=== PATIENT | female | born 1940 | race Caucasian/White ===

== ENCOUNTER 2023-06-23 06:21 | Inpatient (IN) | payer MEDICARE ==
[2023-06-23] MEDS ORDERED: KETAMINE 100 MG/ML (5ML VIAL) ONE (06:30)
[2023-06-23] MEDS ORDERED: fentaNYL 50 mcg/mL 1 mL Vial ONE (06:42)
[2023-06-23] MEDS ORDERED: Ondansetron PF 4 MG/2 ML Vial ONE (07:11)
[2023-06-23 07:15] LABS: #Eosinphils 0.1 thou/uL (0.0-0.7); #Monocytes 0.4 thou/uL (0.11-0.59); #Neutrophils 4.8 thou/uL (1.40-6.50); %Basophils 0.3 % (0.0-1.0); %Eosinophils 2.1 % (0.0-10.0); %Lymphocytes 19.5 % (21.0-51.0); %Monocytes 6.2 % (0.0-10.0); %Neutrophils 71.6 % (42.0-75.0); Hematocrit 20.3 % (36.0-47.0); Hemoglobin 6.3 g/dL (12.0-16.0); Mean Corpuscular Hemoglobin 25.9 pg (27.0-31.0); Mean Corpuscular Volume 83.5 fl (78.0-98.0); Mean Platelet Volume 11.1 fL (7.4-10.4); Platelet Count 244 10x3/uL (130-400); Red Blood Cell (RBC) Count 2.43 mill/uL (4.20-5.40); White Blood Cell (WBC) Count 6.7 10x3/uL (4.8-10.8)
[2023-06-23] MEDS ORDERED: Acetaminophen 325 MG TAB PO PRN (07:19)
[2023-06-23] MEDS ORDERED: Glucagon 1 MG/ML KIT IM PRN (07:19)
[2023-06-23] MEDS ORDERED: Dextrose 50% Abboject 50 ML SYRINGE SLOW IVP PRN (07:19)
[2023-06-23] MEDS ORDERED: Ondansetron ODT 4 MG TAB PO PRN (07:19)
[2023-06-23] MEDS ORDERED: Ondansetron PF 4 MG/2 ML Vial IVP PRN (07:19)
[2023-06-23] MEDS ORDERED: Dextrose 5% in Water 1,000 ML IV PRN (07:19)
[2023-06-23 07:32] LABS: PTT 25.2 sec (22.9-36.1); Prothrombin Time 13.8 sec (12.0-14.7)
[2023-06-23 07:37] LABS: ALT (SGPT) 18 U/L (8-55); AST (SGOT) 24 U/L (5-34); Albumin 3.3 g/dL (3.4-4.8); Alkaline Phosphatase 71 U/L (40-110); Anion Gap 16 mmol/L (10-20); BUN (Urea Nitrogen) 27 mg/dL (9.8-20.1); Bilirubin, Total 0.3 mg/dL (0.2-1.2); Calc. Creatinine Clearance 0 mL/min (70-130); Calcium 8.6 mg/dL (7.8-10.44); Carbon Dioxide 26 mmol/L (23-31); Chloride 97 mmol/L (98-107); Estimated GFR 37; Globulin 2.9 g/dL (2.4-3.5); Glucose 251 mg/dL (83-110); Magnesium 1.8 mg/dL (1.6-2.6); Potassium 3.3 mmol/L (3.5-5.1); Protein, Total 6.2 g/dL (5.8-8.1); Sodium 136 mmol/L (136-145)
[2023-06-23 07:40] LABS: Troponin I 0.064 ng/mL (< 0.028)
[2023-06-23] MEDS ORDERED: Morphine 2 MG/ML VIAL ONE ×2 (08:53→10:52)
[2023-06-23 11:11] LABS: Lactic Acid 1.1 mmol/L (0.5-2.2)
[2023-06-23] MEDS: Morphine 2 MG/ML VIAL SLOW IVP PRN ×2 (11:36→15:13)
[2023-06-23] MEDS ORDERED: TETANUS, DIPHTHERIA TOX,ADULT (TDVAX) 0.5 ML VIAL IM ONE (12:00)
[2023-06-23 12:10] VITALS: BMI 25.4
[2023-06-23 16:39] LABS: Hemoglobin A1c 6.2 % (4.0-6.0)
[2023-06-23 16:51] LABS: Iron 60 ug/dL (50-170); Iron Binding Capacity, Total 326 mcg/dL (265-497)
[2023-06-23] MEDS: HYDROcodone/Acetaminophen 5/325 mg Tablet PO PRN (17:44)
[2023-06-23] MEDS: HumaLOG 300 UNITS/3 ML VIAL SC PRN (18:15)
[2023-06-23 19:06] LABS: Hematocrit 23.6 % (36.0-47.0); Hemoglobin 7.6 g/dL (12.0-16.0)
[2023-06-23] MEDS: Acetaminophen/Codeine 30-300mg Tablet PO PRN (19:47)
[2023-06-24] MEDS: Morphine 2 MG/ML VIAL SLOW IVP PRN ×2 (02:18→20:51)
[2023-06-24] MEDS: HYDROcodone/Acetaminophen 5/325 mg Tablet PO PRN (02:55)
[2023-06-24 04:54] LABS: #Eosinphils 0.1 thou/uL (0.0-0.7); #Monocytes 0.6 thou/uL (0.11-0.59); #Neutrophils 6.7 thou/uL (1.40-6.50); %Basophils 0.2 % (0.0-1.0); %Eosinophils 1.2 % (0.0-10.0); %Lymphocytes 11.9 % (21.0-51.0); %Monocytes 6.8 % (0.0-10.0); %Neutrophils 79.2 % (42.0-75.0); Hematocrit 23.2 % (36.0-47.0); Hemoglobin 7.4 g/dL (12.0-16.0); Mean Corpuscular HGB CONC 31.9 g/dL (32.0-36.0); Mean Corpuscular Hemoglobin 26.6 pg (27.0-31.0); Mean Corpuscular Volume 83.5 fl (78.0-98.0); Mean Platelet Volume 11.1 fL (7.4-10.4); Platelet Count 233 10x3/uL (130-400); RBC Distribution Width 15.3 % (11.5-14.5); Red Blood Cell (RBC) Count 2.78 mill/uL (4.20-5.40); White Blood Cell (WBC) Count 8.4 10x3/uL (4.8-10.8)
[2023-06-24 05:30] LABS: ALT (SGPT) 66 U/L (8-55); AST (SGOT) 76 U/L (5-34); Albumin 3.1 g/dL (3.4-4.8); Alkaline Phosphatase 205 U/L (40-110); Anion Gap 14 mmol/L (10-20); BUN (Urea Nitrogen) 26 mg/dL (9.8-20.1); Bilirubin, Total 0.9 mg/dL (0.2-1.2); Calc. Creatinine Clearance 39 mL/min (70-130); Calcium 8.8 mg/dL (7.8-10.44); Carbon Dioxide 27 mmol/L (23-31); Chloride 97 mmol/L (98-107); Estimated GFR 41; Globulin 2.9 g/dL (2.4-3.5); Glucose 177 mg/dL (83-110); Potassium 3.2 mmol/L (3.5-5.1); Sodium 135 mmol/L (136-145)
[2023-06-24] MEDS ORDERED: Electrolyte Replacement Protocol FS PRN (06:00)
[2023-06-24] MEDS ORDERED: Potassium Chloride 40 MEQ in Premix 1 BAG IVPB SCH (09:00)
[2023-06-24] MEDS ORDERED: Magnesium 2 GM/50 ML(in water) 2 GM in Premix 1 BAG IVPB SCH (09:00)
[2023-06-24] MEDS: Clindamycin/D5W 900 MG in Premix 1 BAG IVPB SCH ×3 (09:33→22:03)
[2023-06-24] MEDS ORDERED: ALPRAZolam 0.25 MG TAB PO PRN (10:17)
[2023-06-24] MEDS ORDERED: Amiodarone 200 MG TAB PO SCH (10:30)
[2023-06-24] MEDS: Potassium Chloride 20 MEQ in Premix 1 BAG IVPB SCH ×2 (11:17→13:58)
[2023-06-24] MEDS: predniSONE 5 MG TAB PO SCH (13:58)
[2023-06-24] MEDS ORDERED: [UNRECOGNIZED DRUG - OTHER] PO SCH (15:15)
[2023-06-24] MEDS: HumaLOG 300 UNITS/3 ML VIAL SC PRN ×2 (17:44→20:42)
[2023-06-24] MEDS ORDERED: Polyethylene Glycol 3350 17 GM Packet PO SCH (18:45)
[2023-06-24] MEDS: Simvastatin 10 MG TAB PO SCH (20:41)
[2023-06-24] MEDS: Furosemide 40 MG TAB PO SCH (20:41)
[2023-06-24] MEDS: Senokot S 8.6-50 MG TAB PO SCH (20:41)
[2023-06-24] MEDS: Donepezil HCl 10 MG TAB PO SCH (20:41)
[2023-06-24] MEDS: Potassium Chloride 20 MEQ TAB PO SCH (20:41)
[2023-06-25 05:49] LABS: #Monocytes 0.5 thou/uL (0.11-0.59); #Neutrophils 5.8 thou/uL (1.40-6.50); %Basophils 0.1 % (0.0-1.0); %Eosinophils 0.1 % (0.0-10.0); %Lymphocytes 13.4 % (21.0-51.0); %Monocytes 6.3 % (0.0-10.0); %Neutrophils 79.4 % (42.0-75.0); Hematocrit 21.3 % (36.0-47.0); Hemoglobin 6.7 g/dL (12.0-16.0); Mean Corpuscular HGB CONC 31.5 g/dL (32.0-36.0); Mean Corpuscular Hemoglobin 26.4 pg (27.0-31.0); Mean Corpuscular Volume 83.9 fl (78.0-98.0); Mean Platelet Volume 11.2 fL (7.4-10.4); Platelet Count 257 10x3/uL (130-400); RBC Distribution Width 15.2 % (11.5-14.5); Red Blood Cell (RBC) Count 2.54 mill/uL (4.20-5.40); White Blood Cell (WBC) Count 7.3 10x3/uL (4.8-10.8)
[2023-06-25 06:27] LABS: ALT (SGPT) 46 U/L (8-55); AST (SGOT) 32 U/L (5-34); Albumin 3.3 g/dL (3.4-4.8); Alkaline Phosphatase 182 U/L (40-110); Anion Gap 12 mmol/L (10-20); BUN (Urea Nitrogen) 26 mg/dL (9.8-20.1); Bilirubin, Total 0.4 mg/dL (0.2-1.2); Calc. Creatinine Clearance 36 mL/min (70-130); Calcium 8.7 mg/dL (7.8-10.44); Carbon Dioxide 26 mmol/L (23-31); Chloride 98 mmol/L (98-107); Estimated GFR 38; Globulin 2.8 g/dL (2.4-3.5); Glucose 170 mg/dL (83-110); Potassium 3.7 mmol/L (3.5-5.1); Protein, Total 6.1 g/dL (5.8-8.1); Sodium 132 mmol/L (136-145)
[2023-06-25] MEDS ORDERED: Clindamycin/D5W 900 mg/50 ml Premix Bag ONE (07:58)
[2023-06-25] MEDS ORDERED: Ondansetron PF 4 MG/2 ML Vial ONE (08:02)
[2023-06-25] MEDS ORDERED: PROPOFOL 20 ML ONE (08:02)
[2023-06-25] MEDS ORDERED: Lidocaine 1% PF 5 ML VIAL ONE (08:02)
[2023-06-25] MEDS ORDERED: PHENYLEPHRINE-NS 100 MCG/ML 10 ML SYRINGE ONE (08:44)
[2023-06-25] MEDS ORDERED: Ondansetron HCl/PF 4 MG/2 ML Vial IVP PRN (09:48)
[2023-06-25] MEDS ORDERED: Promethazine HCl 25 MG/ML VIAL IM PRN (09:48)
[2023-06-25] MEDS ORDERED: fentaNYL 50 mcg/mL 1 mL Vial ONE ×2 (09:52→10:19)
[2023-06-25] MEDS: Clindamycin/D5W 900 MG in Premix 1 BAG IVPB SCH ×3 (10:35→20:44)
[2023-06-25] MEDS: SIROLIMUS 1 MG PO SCH (11:35)
[2023-06-25] MEDS: HYDROcodone/Acetaminophen 5/325 mg Tablet PO PRN ×3 (12:08→20:46)
[2023-06-25] MEDS: Amiodarone 200 MG TAB PO SCH (13:56)
[2023-06-25] MEDS: Ezetimibe 10 MG TAB PO SCH (13:56)
[2023-06-25] MEDS: Furosemide 40 MG TAB PO SCH ×2 (13:56→20:36)
[2023-06-25] MEDS: Venlafaxine 75 MG TAB PO SCH (13:56)
[2023-06-25] MEDS: Senokot S 8.6-50 MG TAB PO SCH ×2 (13:56→20:35)
[2023-06-25] MEDS: Potassium Chloride 20 MEQ TAB PO SCH ×2 (13:57→20:35)
[2023-06-25] MEDS: [UNRECOGNIZED DRUG - OTHER] PO SCH (13:57)
[2023-06-25] MEDS: Polyethylene Glycol 3350 17 GM Packet PO SCH (13:57)
[2023-06-25 17:19] LABS: Hematocrit 28.8 % (36.0-47.0); Hemoglobin 9.1 g/dL (12.0-16.0); Platelet Count 256 10x3/uL (130-400)
[2023-06-25] MEDS: Simvastatin 10 MG TAB PO SCH (20:34)
[2023-06-25] MEDS: Donepezil HCl 10 MG TAB PO SCH (20:36)
[2023-06-26] MEDS: HYDROcodone/Acetaminophen 5/325 mg Tablet PO PRN ×5 (05:15→21:46)
[2023-06-26 05:48] LABS: #Eosinphils 0.1 thou/uL (0.0-0.7); #Monocytes 0.8 thou/uL (0.11-0.59); #Neutrophils 6.8 thou/uL (1.40-6.50); %Basophils 0.1 % (0.0-1.0); %Eosinophils 0.6 % (0.0-10.0); %Lymphocytes 10.5 % (21.0-51.0); %Monocytes 8.7 % (0.0-10.0); %Neutrophils 79.3 % (42.0-75.0); Hematocrit 25.7 % (36.0-47.0); Hemoglobin 8.1 g/dL (12.0-16.0); Mean Corpuscular HGB CONC 31.5 g/dL (32.0-36.0); Mean Corpuscular Hemoglobin 27.5 pg (27.0-31.0); Mean Corpuscular Volume 87.1 fl (78.0-98.0); Mean Platelet Volume 10.8 fL (7.4-10.4); Platelet Count 246 10x3/uL (130-400); RBC Distribution Width 15.1 % (11.5-14.5); Red Blood Cell (RBC) Count 2.95 mill/uL (4.20-5.40); White Blood Cell (WBC) Count 8.6 10x3/uL (4.8-10.8)
[2023-06-26 06:10] LABS: Anion Gap 12 mmol/L (10-20); BUN (Urea Nitrogen) 22 mg/dL (9.8-20.1); Calc. Creatinine Clearance 42 mL/min (70-130); Calcium 8.2 mg/dL (7.8-10.44); Carbon Dioxide 26 mmol/L (23-31); Chloride 99 mmol/L (98-107); Estimated GFR 45; Glucose 167 mg/dL (83-110); Potassium 3.6 mmol/L (3.5-5.1); Sodium 133 mmol/L (136-145)
[2023-06-26] MEDS: SIROLIMUS 1 MG PO SCH ×2 (09:16→10:01)
[2023-06-26] MEDS: Amiodarone 200 MG TAB PO SCH (09:16)
[2023-06-26] MEDS: [UNRECOGNIZED DRUG - OTHER] PO SCH (09:16)
[2023-06-26] MEDS: Furosemide 40 MG TAB PO SCH ×2 (09:17→20:49)
[2023-06-26] MEDS: Senokot S 8.6-50 MG TAB PO SCH ×2 (09:17→20:49)
[2023-06-26] MEDS: Venlafaxine 75 MG TAB PO SCH (09:18)
[2023-06-26] MEDS: Ezetimibe 10 MG TAB PO SCH (09:18)
[2023-06-26] MEDS: Potassium Chloride 20 MEQ TAB PO SCH ×2 (09:19→20:49)
[2023-06-26] MEDS: Clindamycin/D5W 900 MG in Premix 1 BAG IVPB SCH ×3 (09:59→21:47)
[2023-06-26] MEDS ORDERED: Ferrous Gluconate 324 MG TAB PO SCH (10:00)
[2023-06-26] MEDS ORDERED: Aspirin 81 mg Enteric Coated Tablet PO SCH (10:00)
[2023-06-26] MEDS: Polyethylene Glycol 3350 17 GM Packet PO SCH (10:01)
[2023-06-26] MEDS: predniSONE 5 MG TAB PO SCH (11:12)
[2023-06-26] MEDS: HumaLOG 300 UNITS/3 ML VIAL SC PRN (13:30)
[2023-06-26] MEDS: Donepezil HCl 10 MG TAB PO SCH (20:49)
[2023-06-26] MEDS: Simvastatin 10 MG TAB PO SCH (20:49)
[2023-06-27] MEDS: Acetaminophen/Codeine 30-300mg Tablet PO PRN ×2 (03:51→11:03)
[2023-06-27 04:32] LABS: #Monocytes 0.6 thou/uL (0.11-0.59); %Basophils 0.2 % (0.0-1.0); %Eosinophils 0.2 % (0.0-10.0); %Monocytes 8.5 % (0.0-10.0); %Neutrophils 75.9 % (42.0-75.0); Hematocrit 28.4 % (36.0-47.0); Hemoglobin 8.8 g/dL (12.0-16.0); Mean Corpuscular Hemoglobin 27.2 pg (27.0-31.0); Mean Corpuscular Volume 87.9 fl (78.0-98.0); Platelet Count 267 10x3/uL (130-400); RBC Distribution Width 15.3 % (11.5-14.5); Red Blood Cell (RBC) Count 3.23 mill/uL (4.20-5.40); White Blood Cell (WBC) Count 6.6 10x3/uL (4.8-10.8)
[2023-06-27 05:01] LABS: Anion Gap 15 mmol/L (10-20); BUN (Urea Nitrogen) 22 mg/dL (9.8-20.1); Calc. Creatinine Clearance 44 mL/min (70-130); Calcium 8.8 mg/dL (7.8-10.44); Carbon Dioxide 22 mmol/L (23-31); Chloride 101 mmol/L (98-107); Estimated GFR 48; Glucose 128 mg/dL (83-110); Potassium 4.5 mmol/L (3.5-5.1); Sodium 133 mmol/L (136-145)
[2023-06-27] MEDS ORDERED: Ferrous Gluconate 324 MG TAB PO SCH (08:00)
[2023-06-27] MEDS: HYDROcodone/Acetaminophen 5/325 mg Tablet PO PRN (08:53)
[2023-06-27] MEDS: Furosemide 40 MG TAB PO SCH (08:55)
[2023-06-27] MEDS: Ezetimibe 10 MG TAB PO SCH (08:56)
[2023-06-27] MEDS: Potassium Chloride 20 MEQ TAB PO SCH (08:57)
[2023-06-27] MEDS: Senokot S 8.6-50 MG TAB PO SCH (08:57)
[2023-06-27] MEDS: Amiodarone 200 MG TAB PO SCH (08:57)
[2023-06-27] MEDS: Venlafaxine 75 MG TAB PO SCH (08:58)
[2023-06-27] MEDS ORDERED: Aspirin 81 mg Enteric Coated Tablet PO SCH (09:00)
[2023-06-27] MEDS: Polyethylene Glycol 3350 17 GM Packet PO SCH (09:06)
[2023-06-27] MEDS: SIROLIMUS 1 MG PO SCH (09:07)
[2023-06-27] MEDS: [UNRECOGNIZED DRUG - OTHER] PO SCH (09:09)
[2023-06-27] MEDS: Clindamycin/D5W 900 MG in Premix 1 BAG IVPB SCH (09:18)
[2023-06-27] MEDS: HumaLOG 300 UNITS/3 ML VIAL SC PRN (12:43)
[2023-06-27 15:30] VITALS: TEMP 98.1
[2023-06-27 16:44] VITALS: BP 139/63
== END 2023-06-27 17:20 | DRG 481 ==
LOC: ERS 06:21 → ERHOLD 07:26 → 2NO 13:14
PROVIDERS: ADMIT Student in an Organized Health Care Education/Training Program; ATTEND Family Medicine
PROC: 30233N1 Transfusion of Nonautologous Red Blood Cells into Peripheral Vein, Percutaneous Approach (ICD-10-PCS; 2023-06-23)
PROC: 0QS604Z Reposition Right Upper Femur with Internal Fixation Device, Open Approach (ICD-10-PCS; principal; 2023-06-25)
DX: S72.141A Displaced intertrochanteric fracture of right femur, initial encounter for closed fracture (principal); D84.9 Immunodeficiency, unspecified; I42.9 Cardiomyopathy, unspecified; I5A Non-ischemic myocardial injury (non-traumatic); T86.19 Other complication of kidney transplant; S72.051A Unspecified fracture of head of right femur, initial encounter for closed fracture; E78.5 Hyperlipidemia, unspecified; F41.9 Anxiety disorder, unspecified; F32.A Depression, unspecified; F03.90 Unspecified dementia, unspecified severity, without behavioral disturbance, psychotic disturbance, mood disturbance, and anxiety; I25.10 Atherosclerotic heart disease of native coronary artery without angina pectoris; W19.XXXA Unspecified fall, initial encounter; R73.9 Hyperglycemia, unspecified; N18.30 Chronic kidney disease, stage 3 unspecified; Y83.8 Other surgical procedures as the cause of abnormal reaction of the patient, or of later complication, without mention of misadventure at the time of the procedure; I12.9 Hypertensive chronic kidney disease with stage 1 through stage 4 chronic kidney disease, or unspecified chronic kidney disease; D63.1 Anemia in chronic kidney disease; Z98.890 Other specified postprocedural states; Z95.5 Presence of coronary angioplasty implant and graft; Z90.710 Acquired absence of both cervix and uterus; Z87.891 Personal history of nicotine dependence; Z88.8 Allergy status to other drugs, medicaments and biological substances; Y92.002 Bathroom of unspecified non-institutional (private) residence as the place of occurrence of the external cause
CPT/HCPCS: 36415; 36416; 36430; 71045; 80048; 80053; 83036; 83540; 83550; 83605; 83735; 83880; 84484; 85025; 85046; 85610; 85730; 86850; 86900; 86901; 90714; 93005; 93010; 93306; 96374; 96375; C1713; G0390; J1815; J2272; J2405; J2704; J3010; J3475; J3480; J3490; J7512; P9016

== ENCOUNTER 2023-09-04 12:39 | Inpatient (IN) | payer MEDICARE ==
[2023-09-04] MEDS ORDERED: Ondansetron PF 4 MG/2 ML Vial ONE (13:44)
[2023-09-04 14:32] LABS: #Monocytes 0.3 thou/uL (0.11-0.59); %Basophils 0.1 % (0.0-1.0); %Lymphocytes 23.1 % (21.0-51.0); %Monocytes 3.3 % (0.0-10.0); %Neutrophils 73.1 % (42.0-75.0); Hematocrit 19.7 % (36.0-47.0); Hemoglobin 6.1 g/dL (12.0-16.0); Mean Corpuscular Hemoglobin 26.3 pg (27.0-31.0); Mean Corpuscular Volume 84.9 fl (78.0-98.0); Mean Platelet Volume 10.2 fL (7.4-10.4); Platelet Count 272 10x3/uL (130-400); RBC Distribution Width 19.4 % (11.5-14.5); Red Blood Cell (RBC) Count 2.32 mill/uL (4.20-5.40); White Blood Cell (WBC) Count 9.5 10x3/uL (4.8-10.8)
[2023-09-04 14:49] LABS: ALT (SGPT) 12 U/L (8-55); AST (SGOT) 17 U/L (5-34); Albumin 3.4 g/dL (3.4-4.8); Alkaline Phosphatase 89 U/L (40-110); Anion Gap 14 mmol/L (10-20); BUN (Urea Nitrogen) 32 mg/dL (9.8-20.1); Bilirubin, Total 0.5 mg/dL (0.2-1.2); Calc. Creatinine Clearance 0 mL/min (70-130); Calcium 9.1 mg/dL (7.8-10.44); Carbon Dioxide 22 mmol/L (23-31); Chloride 103 mmol/L (98-107); Estimated GFR 49; Globulin 2.6 g/dL (2.4-3.5); Glucose 161 mg/dL (83-110); Lipase 29 U/L (8-78); Magnesium 1.8 mg/dL (1.6-2.6); Potassium 3.8 mmol/L (3.5-5.1); Sodium 135 mmol/L (136-145)
[2023-09-04 14:53] LABS: Troponin I 0.022 ng/mL (< 0.028)
[2023-09-04 15:20] LABS: INR-International Normal Ratio 1.1; Prothrombin Time 13.8 sec (12.0-14.7)
[2023-09-04 15:22] LABS: D-Dimer Test 0.41 mcg/mL (0.27-0.43)
[2023-09-04] MEDS ORDERED: Pantoprazole 40 MG VIAL ONE (15:47)
[2023-09-04 19:15] LABS: Iron 31 ug/dL (50-170); Iron Binding Capacity, Total 278 mcg/dL (265-497)
[2023-09-04 19:23] VITALS: BMI 22.8
[2023-09-04] MEDS ORDERED: Ondansetron PF 4 MG/2 ML Vial IVP PRN (19:38)
[2023-09-04] MEDS: Simvastatin 10 MG TAB PO SCH (20:49)
[2023-09-04] MEDS: Ferrous Gluconate 324 MG TAB PO SCH (20:49)
[2023-09-04] MEDS: Carvedilol 6.25 MG TAB PO SCH (20:49)
[2023-09-04] MEDS: Potassium Chloride 20 MEQ TAB PO SCH (20:49)
[2023-09-04] MEDS: Donepezil HCl 10 MG TAB PO SCH (20:49)
[2023-09-04] MEDS: Acetaminophen 500 MG TAB PO PRN (22:26)
[2023-09-05] MEDS: Melatonin 3 MG TAB PO SCH ×2 (00:27→21:28)
[2023-09-05 02:53] LABS: #Eosinphils 0.1 thou/uL (0.0-0.7); #Monocytes 0.6 thou/uL (0.11-0.59); #Neutrophils 5.8 thou/uL (1.40-6.50); %Basophils 0.3 % (0.0-1.0); %Eosinophils 0.8 % (0.0-10.0); %Monocytes 6.2 % (0.0-10.0); %Neutrophils 64.3 % (42.0-75.0); Hematocrit 25.5 % (36.0-47.0); Hemoglobin 8.4 g/dL (12.0-16.0); Mean Corpuscular HGB CONC 32.9 g/dL (32.0-36.0); Mean Corpuscular Hemoglobin 27.8 pg (27.0-31.0); Mean Corpuscular Volume 84.4 fl (78.0-98.0); Mean Platelet Volume 10.7 fL (7.4-10.4); Platelet Count 183 10x3/uL (130-400); RBC Distribution Width 16.4 % (11.5-14.5); Red Blood Cell (RBC) Count 3.02 mill/uL (4.20-5.40)
[2023-09-05 03:23] LABS: ALT (SGPT) 11 U/L (8-55); AST (SGOT) 17 U/L (5-34); Albumin 2.8 g/dL (3.4-4.8); Alkaline Phosphatase 70 U/L (40-110); Anion Gap 14 mmol/L (10-20); BUN (Urea Nitrogen) 31 mg/dL (9.8-20.1); Bilirubin, Total 0.5 mg/dL (0.2-1.2); Calc. Creatinine Clearance 47 mL/min (70-130); Calcium 8.3 mg/dL (7.8-10.44); Carbon Dioxide 22 mmol/L (23-31); Chloride 104 mmol/L (98-107); Estimated GFR 58; Globulin 2.2 g/dL (2.4-3.5); Glucose 140 mg/dL (83-110); Potassium 3.5 mmol/L (3.5-5.1); Sodium 136 mmol/L (136-145)
[2023-09-05] MEDS: Venlafaxine HCl 25 MG TAB PO SCH (09:00)
[2023-09-05] MEDS: Memantine 5 MG TAB PO SCH (09:01)
[2023-09-05] MEDS: Amiodarone 200 MG TAB PO SCH (09:01)
[2023-09-05] MEDS: predniSONE 5 MG TAB PO SCH (09:01)
[2023-09-05] MEDS: Ezetimibe 10 MG TAB PO SCH (09:01)
[2023-09-05] MEDS: Furosemide 20 MG TAB PO SCH (09:02)
[2023-09-05] MEDS: Ondansetron ODT 4 MG TAB PO PRN (11:26)
[2023-09-05] MEDS: Potassium Chloride 20 MEQ TAB PO SCH (11:26)
[2023-09-05] MEDS: Scopolamine 1 mg/72 hour Patch TD SCH (13:45)
[2023-09-05] MEDS: Ondansetron ODT 4 MG TAB PO SCH (20:26)
[2023-09-05] MEDS: ALPRAZolam 0.25 MG TAB PO PRN (22:38)
[2023-09-05] MEDS: FLU VACC QS2023(65UP)/MF59C/PF 60 MCG/0.5 ML SYRINGE IM ONE (22:41)
[2023-09-06 04:47] LABS: #Eosinphils 0.1 thou/uL (0.0-0.7); #Monocytes 0.7 thou/uL (0.11-0.59); #Neutrophils 10.6 thou/uL (1.40-6.50); %Basophils 0.2 % (0.0-1.0); %Eosinophils 0.5 % (0.0-10.0); %Lymphocytes 15.3 % (21.0-51.0); %Monocytes 5.2 % (0.0-10.0); %Neutrophils 78.2 % (42.0-75.0); Hematocrit 29.2 % (36.0-47.0); Hemoglobin 9.3 g/dL (12.0-16.0); Mean Corpuscular HGB CONC 31.8 g/dL (32.0-36.0); Mean Corpuscular Hemoglobin 28.4 pg (27.0-31.0); Mean Corpuscular Volume 89.3 fl (78.0-98.0); Mean Platelet Volume 11.2 fL (7.4-10.4); Platelet Count 215 10x3/uL (130-400); RBC Distribution Width 18.3 % (11.5-14.5); Red Blood Cell (RBC) Count 3.27 mill/uL (4.20-5.40); White Blood Cell (WBC) Count 13.5 10x3/uL (4.8-10.8)
[2023-09-06] MEDS: Ondansetron ODT 4 MG TAB PO SCH (05:14)
[2023-09-06 06:12] LABS: ALT (SGPT) 11 U/L (8-55); AST (SGOT) 18 U/L (5-34); Albumin 3.4 g/dL (3.4-4.8); Alkaline Phosphatase 92 U/L (40-110); Anion Gap 18 mmol/L (10-20); BUN (Urea Nitrogen) 24 mg/dL (9.8-20.1); Bilirubin, Total 0.4 mg/dL (0.2-1.2); Calc. Creatinine Clearance 37 mL/min (70-130); Calcium 8.9 mg/dL (7.8-10.44); Carbon Dioxide 18 mmol/L (23-31); Chloride 105 mmol/L (98-107); Estimated GFR 44; Globulin 2.7 g/dL (2.4-3.5); Glucose 162 mg/dL (83-110); Potassium 3.8 mmol/L (3.5-5.1); Protein, Total 6.1 g/dL (5.8-8.1); Sodium 137 mmol/L (136-145)
[2023-09-06] MEDS: Aspirin 81 mg Enteric Coated Tablet PO SCH (10:22)
[2023-09-06] MEDS: Senokot S 8.6-50 MG TAB PO SCH (10:23)
[2023-09-06] MEDS: Ferrous Gluconate 324 MG TAB PO SCH (10:23)
[2023-09-06] MEDS: Polyethylene Glycol 3350 17 GM Packet PO SCH (10:24)
[2023-09-06] MEDS: Metoclopramide HCl 10 MG (2 mL) VIAL IVP SCH (10:31)
[2023-09-06] MEDS: Lactated Ringer's 1,000 ML IV SCH (10:31)
[2023-09-06] MEDS: Clopidogrel Bisulfate 75 MG TAB PO SCH (11:51)
[2023-09-06 17:50] LABS: Bacteria/HPF None Seen HPF (None Seen); Bilirubin Negative (Negative); Blood, Urine 1+ (Negative); CAUTI Indications for Culture Dysuria,urgency,freq; Clarity Clear (Clear); Glucose, Urine (Dipstick) Normal (Negative); Ketone, Urine Negative (Negative); Leukocyte Negative Leu/uL (Negative); Nitrite Negative (Negative); Protein, Urine (Dipstick) Negative (Neg-Trace); RBC/HPF 0-3 HPF (0-3); Specific Gravity, Urine 1.009 (1.002-1.036); Squamous Epithelial 0-3 HPF (0-3); Urine Culture Reflex No No; Urobilinogen Normal mg/dL (Less than 2); WBC/HPF 0-3 HPF (0-3); pH, Urine 6.5 (5.0-9.0)
[2023-09-07] MEDS: NIFEdipine XL 30 MG ER.TAB PO SCH (06:15)
[2023-09-07 07:04] LABS: #Monocytes 0.5 thou/uL (0.11-0.59); #Neutrophils 6.7 thou/uL (1.40-6.50); %Basophils 0.1 % (0.0-1.0); %Eosinophils 0.2 % (0.0-10.0); %Lymphocytes 16.8 % (21.0-51.0); %Neutrophils 76.3 % (42.0-75.0); Hematocrit 22.3 % (36.0-47.0); Hemoglobin 7.2 g/dL (12.0-16.0); Mean Corpuscular HGB CONC 32.3 g/dL (32.0-36.0); Mean Corpuscular Hemoglobin 28.6 pg (27.0-31.0); Mean Corpuscular Volume 88.5 fl (78.0-98.0); Mean Platelet Volume 10.7 fL (7.4-10.4); Platelet Count 208 10x3/uL (130-400); RBC Distribution Width 17.9 % (11.5-14.5); Red Blood Cell (RBC) Count 2.52 mill/uL (4.20-5.40); White Blood Cell (WBC) Count 8.7 10x3/uL (4.8-10.8)
[2023-09-07 07:55] LABS: ALT (SGPT) 10 U/L (8-55); AST (SGOT) 13 U/L (5-34); Albumin 2.9 g/dL (3.4-4.8); Alkaline Phosphatase 80 U/L (40-110); Anion Gap 11 mmol/L (10-20); BUN (Urea Nitrogen) 14 mg/dL (9.8-20.1); Bilirubin, Total 0.7 mg/dL (0.2-1.2); Calc. Creatinine Clearance 52 mL/min (70-130); Calcium 8.7 mg/dL (7.8-10.44); Carbon Dioxide 23 mmol/L (23-31); Chloride 102 mmol/L (98-107); Estimated GFR 66; Globulin 2.6 g/dL (2.4-3.5); Glucose 141 mg/dL (83-110); Potassium 3.6 mmol/L (3.5-5.1); Protein, Total 5.5 g/dL (5.8-8.1); Sodium 132 mmol/L (136-145)
[2023-09-07] MEDS: Clopidogrel Bisulfate 75 MG TAB PO SCH (08:24)
[2023-09-07] MEDS ORDERED: NIFEdipine XL 30 MG ER.TAB PO SCH (09:00)
[2023-09-07 09:23] LABS: Hematocrit 23.3 % (36.0-47.0); Hemoglobin 7.5 g/dL (12.0-16.0)
[2023-09-07] MEDS: Lidocaine 2% Viscous Solution 10 ML, Aluminum & Magnesium Hydroxide 30 ML SSW SCH (11:24)
[2023-09-07 17:56] LABS: Hematocrit 29.6 % (36.0-47.0); Hemoglobin 9.6 g/dL (12.0-16.0)
[2023-09-07] MEDS: Carvedilol 6.25 MG TAB PO SCH (20:35)
[2023-09-08] MEDS: Metoclopramide HCl 10 MG (2 mL) VIAL IVP PRN (02:59)
[2023-09-08 05:13] LABS: #Eosinphils 0.1 thou/uL (0.0-0.7); #Monocytes 0.5 thou/uL (0.11-0.59); #Neutrophils 6.6 thou/uL (1.40-6.50); %Basophils 0.1 % (0.0-1.0); %Eosinophils 0.7 % (0.0-10.0); %Lymphocytes 13.9 % (21.0-51.0); %Monocytes 5.5 % (0.0-10.0); %Neutrophils 79.4 % (42.0-75.0); Hematocrit 28.8 % (36.0-47.0); Hemoglobin 9.3 g/dL (12.0-16.0); Mean Corpuscular HGB CONC 32.3 g/dL (32.0-36.0); Mean Corpuscular Hemoglobin 27.8 pg (27.0-31.0); Platelet Count 247 10x3/uL (130-400); RBC Distribution Width 19.3 % (11.5-14.5); Red Blood Cell (RBC) Count 3.35 mill/uL (4.20-5.40); White Blood Cell (WBC) Count 8.3 10x3/uL (4.8-10.8)
[2023-09-08 05:44] LABS: ALT (SGPT) 9 U/L (8-55); AST (SGOT) 13 U/L (5-34); Alkaline Phosphatase 83 U/L (40-110); Anion Gap 16 mmol/L (10-20); BUN (Urea Nitrogen) 18 mg/dL (9.8-20.1); Bilirubin, Total 0.4 mg/dL (0.2-1.2); Calc. Creatinine Clearance 47 mL/min (70-130); Calcium 8.9 mg/dL (7.8-10.44); Carbon Dioxide 23 mmol/L (23-31); Chloride 105 mmol/L (98-107); Estimated GFR 58; Globulin 3.1 g/dL (2.4-3.5); Glucose 136 mg/dL (83-110); Potassium 3.7 mmol/L (3.5-5.1); Protein, Total 6.1 g/dL (5.8-8.1); Sodium 140 mmol/L (136-145)
[2023-09-08] MEDS ORDERED: NIFEdipine XL 30 MG ER.TAB PO SCH (09:00)
[2023-09-08] MEDS ORDERED: Lidocaine 1% PF 5 ML VIAL ONE (09:19)
[2023-09-08] MEDS ORDERED: PROPOFOL 20 ML ONE (09:19)
[2023-09-08] MEDS ORDERED: ePHEDrine Sulfate 50 MG/10 ML VIAL ONE (09:51)
[2023-09-09 05:22] LABS: #Eosinphils 0.1 thou/uL (0.0-0.7); #Monocytes 0.4 thou/uL (0.11-0.59); #Neutrophils 3.6 thou/uL (1.40-6.50); %Basophils 0.2 % (0.0-1.0); %Eosinophils 1.3 % (0.0-10.0); %Monocytes 6.8 % (0.0-10.0); %Neutrophils 68.1 % (42.0-75.0); Hematocrit 27.8 % (36.0-47.0); Hemoglobin 8.9 g/dL (12.0-16.0); Mean Corpuscular Hemoglobin 27.6 pg (27.0-31.0); Mean Corpuscular Volume 86.3 fl (78.0-98.0); Mean Platelet Volume 10.4 fL (7.4-10.4); Platelet Count 255 10x3/uL (130-400); RBC Distribution Width 18.3 % (11.5-14.5); Red Blood Cell (RBC) Count 3.22 mill/uL (4.20-5.40); White Blood Cell (WBC) Count 5.3 10x3/uL (4.8-10.8)
[2023-09-09 06:00] LABS: ALT (SGPT) 8 U/L (8-55); AST (SGOT) 15 U/L (5-34); Albumin 2.8 g/dL (3.4-4.8); Alkaline Phosphatase 80 U/L (40-110); Anion Gap 12 mmol/L (10-20); BUN (Urea Nitrogen) 19 mg/dL (9.8-20.1); Bilirubin, Total 0.4 mg/dL (0.2-1.2); Calc. Creatinine Clearance 54 mL/min (70-130); Calcium 8.9 mg/dL (7.8-10.44); Carbon Dioxide 21 mmol/L (23-31); Chloride 105 mmol/L (98-107); Estimated GFR 69; Globulin 2.9 g/dL (2.4-3.5); Glucose 126 mg/dL (83-110); Potassium 4.3 mmol/L (3.5-5.1); Protein, Total 5.7 g/dL (5.8-8.1); Sodium 134 mmol/L (136-145)
[2023-09-09] MEDS: Saccharomyces boulardii 250 MG CAP PO SCH (09:23)
[2023-09-10 05:17] LABS: #Eosinphils 0.1 thou/uL (0.0-0.7); #Monocytes 0.3 thou/uL (0.11-0.59); #Neutrophils 1.8 thou/uL (1.40-6.50); %Basophils 0.3 % (0.0-1.0); %Eosinophils 1.5 % (0.0-10.0); %Lymphocytes 35.2 % (21.0-51.0); %Monocytes 8.3 % (0.0-10.0); %Neutrophils 54.4 % (42.0-75.0); Hemoglobin 9.4 g/dL (12.0-16.0); Mean Corpuscular HGB CONC 31.3 g/dL (32.0-36.0); Mean Corpuscular Hemoglobin 26.8 pg (27.0-31.0); Mean Corpuscular Volume 85.5 fl (78.0-98.0); Mean Platelet Volume 10.5 fL (7.4-10.4); Platelet Count 300 10x3/uL (130-400); RBC Distribution Width 17.7 % (11.5-14.5); Red Blood Cell (RBC) Count 3.51 mill/uL (4.20-5.40); White Blood Cell (WBC) Count 3.4 10x3/uL (4.8-10.8)
[2023-09-10] MEDS ORDERED: hydrALAZINE 20 MG/ML VIAL SLOW IVP PRN (05:43)
[2023-09-10 05:56] LABS: ALT (SGPT) 14 U/L (8-55); AST (SGOT) 19 U/L (5-34); Albumin 2.8 g/dL (3.4-4.8); Alkaline Phosphatase 82 U/L (40-110); Anion Gap 13 mmol/L (10-20); BUN (Urea Nitrogen) 19 mg/dL (9.8-20.1); Bilirubin, Total 0.2 mg/dL (0.2-1.2); Calc. Creatinine Clearance 52 mL/min (70-130); Calcium 8.6 mg/dL (7.8-10.44); Carbon Dioxide 24 mmol/L (23-31); Chloride 105 mmol/L (98-107); Estimated GFR 68; Globulin 3.1 g/dL (2.4-3.5); Glucose 124 mg/dL (83-110); Potassium 3.6 mmol/L (3.5-5.1); Protein, Total 5.9 g/dL (5.8-8.1); Sodium 138 mmol/L (136-145)
[2023-09-10] MEDS: Senokot S 8.6-50 MG TAB PO SCH (08:39)
[2023-09-10] MEDS: Enoxaparin 40 MG (0.4 mL) SYRINGE SC SCH (09:39)
[2023-09-10 11:54] VITALS: BP 153/68
[2023-09-10 16:20] VITALS: TEMP 97.9
== END 2023-09-10 16:45 | DRG 812 ==
LOC: ERS 12:39 → 2NO 16:43 → OBSVTOIN 09-05 15:33
PROVIDERS: ADMIT Family Medicine; ATTEND Family Medicine
PROC: 30233N1 Transfusion of Nonautologous Red Blood Cells into Peripheral Vein, Percutaneous Approach (ICD-10-PCS; principal; 2023-09-04)
PROC: 0DJ08ZZ Inspection of Upper Intestinal Tract, Via Natural or Artificial Opening Endoscopic (ICD-10-PCS; 2023-09-08)
DX: D50.9 Iron deficiency anemia, unspecified (principal); I42.2 Other hypertrophic cardiomyopathy; E87.1 Hypo-osmolality and hyponatremia; Z94.0 Kidney transplant status; I48.91 Unspecified atrial fibrillation; I10 Essential (primary) hypertension; E78.5 Hyperlipidemia, unspecified; F03.90 Unspecified dementia, unspecified severity, without behavioral disturbance, psychotic disturbance, mood disturbance, and anxiety; F41.9 Anxiety disorder, unspecified; F32.A Depression, unspecified; R63.4 Abnormal weight loss; R91.1 Solitary pulmonary nodule; I25.10 Atherosclerotic heart disease of native coronary artery without angina pectoris; Z95.5 Presence of coronary angioplasty implant and graft; Z90.710 Acquired absence of both cervix and uterus; Z98.890 Other specified postprocedural states; Z90.49 Acquired absence of other specified parts of digestive tract; Z87.891 Personal history of nicotine dependence; I25.2 Old myocardial infarction; Z68.22 Body mass index [BMI] 22.0-22.9, adult; Z88.1 Allergy status to other antibiotic agents; Z88.8 Allergy status to other drugs, medicaments and biological substances; Z79.82 Long term (current) use of aspirin; Z79.899 Other long term (current) drug therapy
CPT/HCPCS: 36415; 36430; 71045; 71250; 74177; 80053; 81001; 82728; 83540; 83550; 83605; 83690; 83735; 83880; 84484; 85025; 85379; 85610; 85730; 86850; 86900; 86901; 93005; 93010; 93306; 96374; 96375; C9113; G0378; J1650; J2405; J2704; J2765; J7120; J7512; J7520; P9016; Q0162

== ENCOUNTER → 2023-11-24 | Outpatient (CLI) | payer MEDICARE, OTHER | LOC: PET 11:00 | PROVIDERS: ATTEND Internal Medicine | DX: R91.8 Other nonspecific abnormal finding of lung field (principal); J90 Pleural effusion, not elsewhere classified | CPT/HCPCS: 78815; A9552 ==

== ENCOUNTER → 2023-11-28 | Day surgery (SDC) | payer MEDICARE, OTHER ==
[~2023-11-28] MED LIST: Lidocaine 1% w/Epinephrine 1:100K 20 ML VIAL ONE; Midazolam HCl 2 mg/2 ml Vial ONE; Sodium Bicarbonate 2.5 MEQ/5 ML SDV ONE; fentaNYL 50 mcg/mL 1 mL Vial ONE
[2023-11-28 08:48] LABS: #Basophils Less than 0.03 10x3/uL (0.0-0.2); %Basophils 0.3 % (0.0-1.0); %Eosinophils 0.5 % (0.0-10.0); %Lymphocytes 20.2 % (21.0-51.0); %Monocytes 6.1 % (0.0-10.0); %Neutrophils 72.7 % (42.0-75.0); Hematocrit 37.7 % (36.0-47.0); Hemoglobin 11.9 g/dL (12.0-16.0); Mean Corpuscular HGB CONC 31.6 g/dL (32.0-36.0); Mean Corpuscular Volume 85.7 fL (78.0-98.0); Mean Platelet Volume 10.5 fL (7.4-10.4); Platelet Count 323 10x3/uL (130-400); RBC Distribution Width 13.2 % (11.5-14.5)
[2023-11-28 09:01] LABS: PTT 29.5 sec (22.9-36.1); Prothrombin Time 13.6 sec (12.0-14.7)
== END ==
LOC: CT 08:26
PROVIDERS: ATTEND Internal Medicine
PROC: 0BBF3ZX Excision of Right Lower Lung Lobe, Percutaneous Approach, Diagnostic (ICD-10-PCS; principal; 2023-11-28)
DX: C34.31 Malignant neoplasm of lower lobe, right bronchus or lung (principal); R91.8 Other nonspecific abnormal finding of lung field; D64.9 Anemia, unspecified; E78.00 Pure hypercholesterolemia, unspecified; F32.A Depression, unspecified; E11.9 Type 2 diabetes mellitus without complications; I11.9 Hypertensive heart disease without heart failure; Z98.890 Other specified postprocedural states; Z90.710 Acquired absence of both cervix and uterus; Z87.891 Personal history of nicotine dependence; Z79.899 Other long term (current) drug therapy
CPT/HCPCS: 32408; 71045; 71046; 77012; 85025; 85610; 85730; 88333; 88334; J3010; 88305; 88341; 88342; 99152; 99153; J2250

== ENCOUNTER 2023-12-20 09:22 | Outpatient (CLI) | payer MEDICARE, OTHER | END 2023-12-20 09:23 | disposition home or self-care (01) | LOC: MRI 09:22 | PROVIDERS: ATTEND Internal Medicine | DX: C34.31 Malignant neoplasm of lower lobe, right bronchus or lung (principal) | CPT/HCPCS: 70551 ==

== ENCOUNTER 2024-04-13 12:56 | Observation (INO) | payer MEDICARE, OTHER ==
[2024-04-13 14:20] LABS: Bacteria/HPF None Seen HPF (None Seen); Bilirubin Negative (Negative); Blood, Urine Negative (Negative); CAUTI Indications for Culture Dysuria,urgency,freq; Clarity Clear (Clear); Glucose, Urine (Dipstick) Normal (Negative); Ketone, Urine Negative (Negative); Leukocyte Negative Leu/uL (Negative); Nitrite Negative (Negative); Protein, Urine (Dipstick) Negative (Neg-Trace); RBC/HPF 0-3 HPF (0-3); Specific Gravity, Urine 1.006 (1.002-1.036); Squamous Epithelial 0-3 HPF (0-3); Urobilinogen Normal mg/dL (Less than 2); WBC/HPF 0-3 HPF (0-3)
[2024-04-13 14:31] LABS: Urine Culture Reflex No No
[2024-04-13] MEDS ORDERED: Acetaminophen 500 MG TAB ONE ×2 (14:40→20:02)
[2024-04-13] MEDS ORDERED: ALPRAZolam 0.25 MG TAB PO PRN (22:58)
[2024-04-14] MEDS ORDERED: Acetaminophen 325 MG TAB PO PRN
[2024-04-14] MEDS: traMADol HCl 50 MG TAB PO PRN (00:13)
[2024-04-14 00:18] VITALS: BMI 23.7
[2024-04-14 05:53] LABS: #Basophils Less than 0.03 10x3/uL (0.0-0.2); %Basophils 0.3 % (0.0-1.0); %Eosinophils 1.1 % (0.0-10.0); %Lymphocytes 22.8 % (21.0-51.0); %Monocytes 10.1 % (0.0-10.0); %Neutrophils 65.4 % (42.0-75.0); Hematocrit 34.3 % (36.0-47.0); Hemoglobin 10.8 g/dL (12.0-16.0); Mean Corpuscular HGB CONC 31.5 g/dL (32.0-36.0); Mean Corpuscular Hemoglobin 27.5 pg (27.0-31.0); Mean Corpuscular Volume 87.3 fL (78.0-98.0); Mean Platelet Volume 10.5 fL (7.4-10.4); Platelet Count 200 10x3/uL (130-400); RBC Distribution Width 15.2 % (11.5-14.5); Red Blood Cell (RBC) Count 3.93 mill/uL (4.20-5.40)
[2024-04-14 06:34] LABS: Anion Gap 8 mmol/L (10-20); BUN (Urea Nitrogen) 16 mg/dL (9.8-20.1); Calc. Creatinine Clearance 54 mL/min (70-130); Carbon Dioxide 28 mmol/L (23-31); Chloride 107 mmol/L (98-107); Estimated GFR 68; Glucose 90 mg/dL (83-110); Potassium 3.4 mmol/L (3.5-5.1); Sodium 140 mmol/L (136-145)
[2024-04-14 07:00] LABS: Calcium 8.7 mg/dL (7.8-10.44)
[2024-04-14] MEDS: Aspirin 81 mg Enteric Coated Tablet PO SCH (09:15)
[2024-04-14] MEDS: Ezetimibe 10 MG TAB PO SCH (09:15)
[2024-04-14] MEDS: predniSONE 5 MG TAB PO SCH (09:16)
[2024-04-14] MEDS: Carvedilol 6.25 MG TAB PO SCH (09:16)
[2024-04-14] MEDS: Furosemide 40 MG TAB PO SCH (09:16)
[2024-04-14] MEDS: Amiodarone 200 MG TAB PO SCH (09:17)
[2024-04-14] MEDS ORDERED: Electrolyte Replacement Protocol 1 EACH FS SCH (10:30)
[2024-04-14] MEDS: Potassium Chloride 20 MEQ TAB PO SCH (11:58)
[2024-04-14] MEDS: Magnesium 2 GM/50 ML(in water) 2 GM in Premix 1 BAG IVPB SCH (12:04)
[2024-04-14] MEDS: [UNRECOGNIZED DRUG - OTHER] PO SCH (12:40)
[2024-04-14] MEDS: Venlafaxine HCl 25 MG TAB PO SCH (15:46)
[2024-04-14] MEDS: Donepezil HCl 10 MG TAB PO SCH (20:24)
[2024-04-14] MEDS: Simvastatin 10 MG TAB PO SCH (20:24)
[2024-04-15 05:07] LABS: #Basophils Less than 0.03 10x3/uL (0.0-0.2); %Basophils 0.3 % (0.0-1.0); %Eosinophils 0.8 % (0.0-10.0); %Lymphocytes 24.4 % (21.0-51.0); %Monocytes 8.6 % (0.0-10.0); %Neutrophils 65.6 % (42.0-75.0); Hematocrit 35.1 % (36.0-47.0); Hemoglobin 11.3 g/dL (12.0-16.0); Mean Corpuscular HGB CONC 32.2 g/dL (32.0-36.0); Mean Corpuscular Hemoglobin 27.8 pg (27.0-31.0); Mean Corpuscular Volume 86.5 fL (78.0-98.0); Mean Platelet Volume 9.9 fL (7.4-10.4); Platelet Count 207 10x3/uL (130-400); RBC Distribution Width 15.1 % (11.5-14.5); Red Blood Cell (RBC) Count 4.06 mill/uL (4.20-5.40)
[2024-04-15 05:20] LABS: ALT (SGPT) 11 U/L (8-55); AST (SGOT) 15 U/L (5-34); Albumin 2.8 g/dL (3.4-4.8); Alkaline Phosphatase 128 U/L (40-110); Anion Gap 10 mmol/L (10-20); BUN (Urea Nitrogen) 17 mg/dL (9.8-20.1); Bilirubin, Total 0.3 mg/dL (0.2-1.2); Calc. Creatinine Clearance 59 mL/min (70-130); Calcium 8.6 mg/dL (7.8-10.44); Carbon Dioxide 26 mmol/L (23-31); Chloride 105 mmol/L (98-107); Estimated GFR 75; Globulin 3.5 g/dL (2.4-3.5); Glucose 120 mg/dL (83-110); Potassium 3.2 mmol/L (3.5-5.1); Protein, Total 6.3 g/dL (5.8-8.1); Sodium 138 mmol/L (136-145)
[2024-04-15] MEDS: Potassium Chloride 20 MEQ TAB PO SCH (08:28)
[2024-04-15] MEDS: [UNRECOGNIZED DRUG - OTHER] PO SCH (08:28)
[2024-04-15] MEDS: Ondansetron PF 4 MG/2 ML Vial IVP PRN (08:31)
[2024-04-15] MEDS: Ondansetron PF 4 MG/2 ML Vial IVP SCH (13:15)
[2024-04-15] MEDS: Pantoprazole DR 40 MG TAB PO SCH (14:59)
[2024-04-15] MEDS: FLU (Fluad Triv) TS24-25 (65UP)/MF59C/PF 45 MCG/0.5 ML Syringe IM ONE (16:28)
[2024-04-15] MEDS: Losartan 25 MG TAB PO SCH (20:36)
[2024-04-15] MEDS: Acetaminophen 500 MG TAB PO PRN (20:38)
[2024-04-15] MEDS: Melatonin 3 MG TAB PO SCH (20:38)
[2024-04-16] VITALS: TEMP 98.2
[2024-04-16] MEDS: Memantine 5 MG TAB PO SCH (08:38)
[2024-04-16] MEDS: Saccharomyces boulardii 250 MG CAP PO SCH (08:38)
[2024-04-16] MEDS: Venlafaxine HCl XR 150 MG CAP PO SCH (08:38)
[2024-04-16] MEDS: Pantoprazole DR 40 MG TAB PO SCH (08:38)
[2024-04-16] MEDS: Multivit, Therapeutic 1 TAB PO SCH (08:39)
[2024-04-16] MEDS: Cholecalciferol 1,000 UNITS (25 MCG) TAB PO SCH (08:40)
[2024-04-16] MEDS: Docusate 100 MG CAP PO PRN (09:52)
[2024-04-16] MEDS: Polyethylene Glycol 3350 17 GM Packet PO PRN (09:52)
[2024-04-16] MEDS ORDERED: predniSONE 5 MG TAB PO SCH (11:45)
[2024-04-16] MEDS ORDERED: Milk Of Magnesia 30 ML UDCUP PO PRN (13:37)
[2024-04-16] MEDS: Senokot S 8.6-50 MG TAB PO SCH (13:53)
[2024-04-16 16:19] VITALS: BP 123/74
[2024-04-16] MEDS ORDERED: Senokot S 8.6-50 MG TAB PO SCH (21:00)
== END 2024-04-16 16:43 ==
LOC: ERS 12:56 → SUATTDRO 12:56 → T4-B 20:21
PROVIDERS: ADMIT Internal Medicine; ATTEND Internal Medicine
DX: R53.1 Weakness (principal); F03.90 Unspecified dementia, unspecified severity, without behavioral disturbance, psychotic disturbance, mood disturbance, and anxiety; I10 Essential (primary) hypertension; E78.5 Hyperlipidemia, unspecified; I25.10 Atherosclerotic heart disease of native coronary artery without angina pectoris; I48.91 Unspecified atrial fibrillation; I48.0 Paroxysmal atrial fibrillation; M54.50 Low back pain, unspecified; G89.29 Other chronic pain; Z88.8 Allergy status to other drugs, medicaments and biological substances; Z88.1 Allergy status to other antibiotic agents; Z94.0 Kidney transplant status; Z79.899 Other long term (current) drug therapy; Z23 Encounter for immunization
CPT/HCPCS: 71046; 73110; 73502; 74019; 80048; 80053; 81001; 82962; 83735; 85025 ×2; 90653; 96374; 96375; 96376 ×2; 97116; 97530; 97535; 99285; G0008; G0378 ×4; J2405 ×2; J3475; J7520; 36415; 36416; 90471; J7512

== ENCOUNTER 2024-06-12 08:39 | Outpatient (CLI) | payer MEDICARE, OTHER | END 2024-06-12 08:40 | disposition home or self-care (01) | LOC: CT 08:39 | PROVIDERS: ATTEND Radiology Radiation Oncology | DX: C34.81 Malignant neoplasm of overlapping sites of right bronchus and lung (principal); R91.8 Other nonspecific abnormal finding of lung field | CPT/HCPCS: 71250 ==